=== PATIENT | female | born 1985 | race Hispanic/Latino ===

== ENCOUNTER 2025-02-02 11:53 | Emergency (ER) | payer BC ==
[~2025-02-02] VITALS: Ht 152.4 cm; Wt 77.1 kg
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
[2025-02-02] MEDS: NEOMY SULF/BACITRA/POLYMYXIN B 1 EACH PACKET TP ONE (13:56)
[2025-02-02] MEDS: LIDOCAINE HCL 1% 20 ML VIAL INJ ONE (13:56)
[2025-02-02] MEDS: HYDROcodone/APAP 5/325 1 TAB TABLET PO ONE (13:56)
[2025-02-02] MEDS ORDERED: CEPH500T PO (14:46)
[2025-02-02] MEDS ORDERED: MUPI22O TP (14:46)
[2025-02-02] MEDS ORDERED: IBUP-2077 PO (14:46)
[2025-02-02 15:15] VITALS: BP 160/93; PULSE 76; RESP 18; TEMP 97.9; O2SAT 98
== END 2025-02-02 15:30 | disposition home or self-care (01) ==
LOC: EDH 11:53
DX: S81.012A Laceration without foreign body, left knee, initial encounter (principal); Z88.2 Allergy status to sulfonamides; V18.4XXA Pedal cycle driver injured in noncollision transport accident in traffic accident, initial encounter; Y93.55 Activity, bike riding; Y92.89 Other specified places as the place of occurrence of the external cause; Y99.8 Other external cause status
CPT/HCPCS: 12002; 73562; 90471; 90714; 99284